=== PATIENT | female | born 1975 | race African-American/Black ===

== ENCOUNTER 2022-05-09 23:33 | Emergency (ER) | payer MEDICAID, OTHER ==
[~2022-05-09] VITALS: Ht 160 cm; Wt 71.0 kg
[2022-05-09 23:33] VITALS: BP 144/95
[2022-05-10] MEDS ORDERED: KETOROLAC TROMETH 60MG/2ML VIAL IM ONE (06:15)
== END 2022-05-10 06:13 | disposition home or self-care (01) ==
LOC: ER 23:33
DX: M54.2 Cervicalgia (principal); R42 Dizziness and giddiness; R51.9 Headache, unspecified
CPT/HCPCS: 70490; 99284; J1885